=== PATIENT | female | born 1965 | race Caucasian/White ===

== ENCOUNTER → 2017-04-24 | Outpatient (CLI) | payer BC ==
[2017-04-24 14:11] LABS: Basophils % (A) 0 %; Eosinophils # (A) 0.2 k/uL (0-0.7); Eosinophils % (A) 2 %; HGB 14.3 gm/dL (11.4-16.0); Lymphocytes # (A) 1.3 k/uL (1.0-4.8); Lymphocytes % (A) 18 %; MCH 32.8 pg (25.0-35.0); MCHC 32.6 g/dL (31.0-37.0); MCV 100.7 fL (80.0-100.0); Mean Platelet Volume 7.9; Monocytes # (A) 0.3 k/uL (0-1.0); Monocytes % (A) 4 %; Neutrophils # (A) 5.3 k/uL (1.3-7.7); Neutrophils % (A) 74 %; Platelet Count 250 k/uL (150-450); RBC 4.37 m/uL (3.80-5.40); RDW 12.2 % (11.5-15.5); WBC 7.1 k/uL (3.8-10.6)
[2017-04-24 14:18] LABS: INR 0.9 (<1.2); Partial Thromboplastin Time 23.8 sec (22.0-30.0); Prothrombin Time 9.4 sec (9.0-12.0)
--- NOTE | 2017-04-24 14:21 | XR ---
EXAMINATION TYPE: XR chest 2V DATE OF EXAM: 04/24/2017 COMPARISON: NONE HISTORY: Shortness of breath TECHNIQUE: Frontal and lateral views of the chest are obtained. FINDINGS: Scattered senescent parenchymal changes noted. Hyperinflation compatible with COPD. No evidence for infiltrate. No evidence for atelectasis. Heart size is stable. Mediastinal structures are stable and grossly unremarkable. No evidence for hilar prominence. Degenerative changes dorsal spine. IMPRESSION: 1. No evidence for acute pulmonary disease.
== END | disposition home or self-care (01) ==
LOC: LABPAT 13:19
PROVIDERS: ATTEND Orthopaedic Surgery
DX: Z01.818 Encounter for other preprocedural examination (principal); S52.551D Other extraarticular fracture of lower end of right radius, subsequent encounter for closed fracture with routine healing; Z79.01 Long term (current) use of anticoagulants; Z01.812 Encounter for preprocedural laboratory examination
CPT/HCPCS: 36415; 71046; 80051; 85025; 85610; 85730; 93005

== ENCOUNTER 2017-04-25 11:58 | Day surgery (SDC) | payer BC ==
[2017-04-24 15:09] VITALS: BMI 29.2
--- NOTE | 2017-04-24 15:54 | HP ---
HISTORY AND PHYSICAL CHIEF COMPLAINT: Right wrist pain. 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 She slipped and fell in her friend's front yard on some ice. She had no loss of consciousness. Initially, she was seen in the emergency room and was placed into a splint. She denies previous injury. PAST MEDICAL HISTORY: Significant for hypercholesterolemia and seizures. PAST SURGICAL HISTORY: Significant for section. CURRENT MEDICATIONS: Phenobarbital, simvastatin and tramadol. ALLERGIES: She has allergies to CODEINE AND SULFA. FAMILY HISTORY: Significant for diabetes and heart disease. SOCIAL HISTORY: Significant for previous tobacco use, however, she quit in 2007. REVIEW OF SYSTEMS: Sixteen point review of systems otherwise reviewed and is noncontributory. PHYSICAL EXAMINATION: On examination, the patient is approximately 5 feet tall, 150 pounds of mesomorphic habitus. HEENT exam is nonfocal. NECK: Supple. She is nontender about the right shoulder and elbow. She has full pronation and supination of the right forearm. On the right wrist, she has moderate dorsal swelling. She has dorsal deformity. The skin is intact. She is tender over the distal radius. The distal radioulnar joint appears stable. She has moderate digital stiffness. Light touch is grossly intact throughout the right digits. She does fire the EPL. Two views of the right wrist obtained in the office show an extra-articular distal radius fracture with moderate dorsal angulation and comminution. IMPRESSION: Right extra-articular distal radius [id number]. RECOMMENDATIONS: I talked with the patient regarding her condition and treatment options at this point. With the degree of initial angulation, displacement, and dorsal comminution, I recommended surgical intervention. We will plan to proceed with open reduction and internal fixation of a right distal radius fracture. Potentially we will perform that as an outpatient procedure. Risks and benefits were discussed at length in layman's terms. MMODL / IJN: [id number] /
[~2017-04-25 11:58] MED LIST: ceFAZolin 1,000 MG in DEXTROSE/WATER 1 50ML.BAG IV ONE
[2017-04-25 12:25] VITALS: RESP 16
[2017-04-25] MEDS ORDERED: LIDOCAINE 1% 20 ML VIAL (10MG/ML) FOR IV START IV ONE (13:11)
[2017-04-25] MEDS ORDERED: LACTATED RINGERS 1,000 ML IV ONE (13:12)
[2017-04-25] MEDS ORDERED: ONDANSETRON 4 MG/2 ML VIAL IVP ONE (13:13)
[2017-04-25] MEDS ORDERED: SCOPOLAMINE 1.5MG/72HR PATCH TRANSDERM ONE (13:14)
[2017-04-25] MEDS ORDERED: DEXAMETHASONE SOD PHOSPHATE 10 MG/ML 1 ML VIAL IV ONE (13:14)
[2017-04-25] MEDS ORDERED: MIDAZOLAM 2 MG/2 ML VIAL ONE (13:37)
[2017-04-25] MEDS ORDERED: PROPOFOL 10 MG/ML 20 ML VIAL IV ONE (13:37)
[2017-04-25] MEDS ORDERED: ePHEDrine SULFATE/0.9% NACL/PF 50 MG/5 ML SYRINGE IV ONE (13:37)
[2017-04-25] MEDS ORDERED: LIDOCAINE 2%-EPI 1:100,000 20 ML VIAL ONE (13:37)
[2017-04-25] MEDS ORDERED: SUCCINYLCHOLINE CHLORIDE 100 MG/5 ML SYR IV ONE (13:37)
[2017-04-25] MEDS ORDERED: fentaNYL (PF) 50 MCG/ML 2 ML AMP ONE (13:37)
[2017-04-25] MEDS ORDERED: ROPIVACAINE 5 MG/ML 30 ML VIAL ONE (13:37)
[2017-04-25] MEDS ORDERED: LIDOCAINE 1% INJ 10MG/ML (20 ML MDV) ONE (13:37)
[2017-04-25] MEDS ORDERED: ceFAZolin 1,000 MG in SODIUM CHLORIDE 0.9% 1,000 ML IRRIGATION ONE (14:05)
--- NOTE | 2017-04-25 15:07 | XR ---
Fluoroscopy History: Rt. Wrist Fracture ORIF Rt Wrist. [place] [address] Maguire. 3 images scanned under FL order
--- NOTE | 2017-04-25 15:09 | P.OP ---
Date of Procedure: 04/25/17 Preoperative Diagnosis: Displaced/angulated/comminuted right extra-articular distal radius fracture Postoperative Diagnosis: Same Procedure(s) Performed: Open reduction and internal fixation right extra-articular distal radius fracture Implants: Rubi 3-hole standard volar distal radial plate Anesthesia: LETI Surgeon: Shiva Maguire [employer]: Everett Lugo Estimated Blood Loss (ml): 5 Pathology: none sent Condition: stable Disposition: PACU Indications for Procedure: The patient's a 51-year-old female who presents after falling sustaining a displaced, angulated, comminuted closed extra-articular right distal radius fracture. A discussion of the risks and benefits of operative intervention versus attempted conservative measures was made with patient. She opted to proceed with surgery. Operative risks to include infection, neurovascular injury, development of blood clots, development of nonunion, possible development of malunion, possible irritation secondary hardware need for subsequent procedures was discussed. Informed consent was obtained. Operative Findings: As below Description of Procedure: The patient was brought to the operating room, and after induction of general anesthesia the right upper extremity was prepped and draped in normal fashion. The tourniquet was inflated to 250 mmHg. A 5 cm incision was then made centered over the volar radial aspect of the right wrist. Skin was incised sharply. Subcutaneous tissues were divided bluntly. Electrocautery was used for hemostasis. The tendon sheath of the flexor carpi radialis was opened. The tendon was gently retracted ulnarly and the radial artery retracted radially. The underlying fascia was opened. The contents of the carpal canal were bluntly dissected and retracted ulnarly. The pronator quadratus was elevated subperiosteally. The fracture site was identified and cleaned of clot and debris. This was then provisionally reduced with longitudinal traction and manipulation. A 3 hole volar plate was placed along the volar surface of the distal radius. This was provisionally held in place with K wires and verified with fluoroscopy. 2.4 mm cortical screws were placed proximally along with smooth pegs in the distal 2 rows. This was done with the aid of fluoroscopy. Final fluoroscopic views showed adequate reduction of the fracture and placement of the implant. This was verified on the AP, PA, and elevated lateral views. The wound was irrigated with normal saline. The subcutaneous tissues reapproximated interrupted 3-0 Vicryl sutures. The skin was reprepped with 4-0 subcuticular Prolene suture. Steri-Strips were applied. A sterile dressing was applied in addition to a volar splint. The tourniquet was deflated less than 1 hour total tourniquet time. The patient was awoken from general anesthesia and transferred to recovery room in good condition. Blood loss was estimated 5 mL. No complications were incurred. Sponge and needle counts were correct in the case.
[2017-04-25 15:16] VITALS: TEMP 97
[2017-04-25] MEDS: HYDROmorphone 2 MG/ML 1 ML SYRINGE IVP ONE ×3 (15:24→15:48)
[2017-04-25 17:15] VITALS: BP 169/99; PULSE 89
== END 2017-04-25 17:25 | disposition home or self-care (01) ==
LOC: OR 11:58
PROVIDERS: ATTEND Orthopaedic Surgery
DX: S52.551A Other extraarticular fracture of lower end of right radius, initial encounter for closed fracture (principal); W00.0XXA Fall on same level due to ice and snow, initial encounter; E78.00 Pure hypercholesterolemia, unspecified; G40.909 Epilepsy, unspecified, not intractable, without status epilepticus; Z87.891 Personal history of nicotine dependence; F32.9 Major depressive disorder, single episode, unspecified; E78.5 Hyperlipidemia, unspecified; Z79.891 Long term (current) use of opiate analgesic; Z79.899 Other long term (current) drug therapy; Z88.5 Allergy status to narcotic agent; Z88.2 Allergy status to sulfonamides
CPT/HCPCS: 73100; 25607; C1713; J2250; J1170; J1100; J2405; J0690 ×2; J2001; J3010; J2795; J0330; J2704